=== PATIENT | female | born 1995 | race African-American/Black ===

== ENCOUNTER 2022-11-27 18:11 | Emergency (ER) | payer SELFPAY ==
[~2022-11-27] VITALS: Ht 154.9 cm; Wt 98.9 kg
[2022-11-27 18:24] VITALS: BP 140/92; PULSE 67; RESP 20; TEMP 97.7; O2SAT 98
[2022-11-27 18:50] LABS: BASOPHILS % (AUTO) 0.4 % (0.0-2.0); EOSINOPHILS # (AUTO) 0.4 K/uL (0-0.4); EOSINOPHILS % (AUTO) 6.1 % (0.0-4.0); HEMATOCRIT 38.2 % (36-48); HEMOGLOBIN 12.4 g/dL (12.0-16.0); LYMPHOCYTES # (AUTO) 2.2 K/uL (2.5-16.5); MEAN CORPUSCULAR HEMOGLOBIN 28 pg (27-31); MEAN CORPUSCULAR HGB CONC 33 g/dL (33-37); MEAN CORPUSCULAR VOLUME 86.9 fL (80-94); MONOCYTES # (AUTO) 0.3 K/uL (0.8-1.0); MONOCYTES % (AUTO) 4.3 % (1.7-9.3); NEUTROPHILS # (AUTO) 3.2 K/uL (1.8-7.7); NEUTROPHILS % (AUTO) 53.2 % (42.2-75.2); PLATELET COUNT (AUTO) 316 K/uL (140-450); RED BLOOD CELL COUNT(AUTO) 4.39 MIL/uL (4.20-5.40); RED CELL DISTRIBUTION WIDTH 14.2 % (11.6-13.7)
--- NOTE | 2022-11-27 18:56 | NUR ---
Pt bibs for chest pain that started today at work. Pt states she was sitting at her work desk when she suddenly felt the pain, 10/10, mid sternum, ache, non radiating. Pt still has pain but it has subsided to 7/10. Pt also complains of vaginal pain x 2 days. Pt states she has burning with urination and blisters. I did not inspect this, nor was I in the room when MD assessed pt. Pt has hx of anxiety.
[2022-11-27 19:09] LABS: ALBUMIN 3.8 g/dL (3.4-5.0); ANION GAP 12.8 (8-16); ASPARTATE AMINOTRANSFERASE 17 U/L (15-37); CHLORIDE 105 mmol/L (98-107); GFR ARICAN-AMERICAN 84 mL/min (>90); GLUCOSE 92 mg/dL (74-106); LIPASE 190 U/L (73-393); POTASSIUM 3.8 mmol/L (3.5-5.1); SODIUM SERUM 141 mmol/L (136-145); TOTAL BILIRUBIN 0.2 mg/dL (0.0-1.0); UREA NITROGEN, BLOOD 16 mg/dL (7-18)
[2022-11-27 19:10] LABS: APPEARANCE,URINE CLEAR (CLEAR); BILIRUBIN,URINE NEGATIVE (NEGATIVE); BLOOD, URINE NEGATIVE (NEGATIVE); COLOR,URINE YELLOW (YELLOW); LEUKOCYTE ESTERASE ,URINE NEGATIVE (NEGATIVE); NITRITE, URINE NEGATIVE (NEGATIVE); UGLUCOSE NEGATIVE (NEGATIVE)
[2022-11-27] MEDS ORDERED: IBUP-1842 PO (20:16)
[2022-11-27 20:30] VITALS: BP 140/92; PULSE 67; RESP 20; TEMP 97.7; O2SAT 98
== END 2022-11-27 20:30 | disposition home or self-care (01) ==
LOC: MED 18:11
DX: R10.2 Pelvic and perineal pain (principal); R07.9 Chest pain, unspecified; R10.30 Lower abdominal pain, unspecified; F41.9 Anxiety disorder, unspecified
CPT/HCPCS: 36415; 71045; 80053; 81003; 81025; 83690; 84484; 85025; 87491; 93005; 99285; Q0092